=== PATIENT | female | born 1975 | race Caucasian/White ===

== ENCOUNTER 2022-01-28 02:18 | Emergency (ER) | payer BC, SELFPAY ==
[2022-01-28] VITALS (8 sets, daily range): BP systolic 110–143; BP diastolic 72–99; PULSE 70–86; RESP 13–18; TEMP 36.5; O2SAT 100
--- NOTE | ~2022-01-28 | XR_ITS ---
EXAMINATION: XR chest 2V DATE: 01/28/2022 03:17 INDICATION: Chest pain. TECHNIQUE: Frontal and lateral views of the chest were obtained. COMPARISON: Chest single view 03/30/2017 FINDINGS: There is mild scarring at the lung apices. No pleural effusion or pneumothorax. The heart s ize is normal. IMPRESSION: 1. Mild scarring at the lung apices. Reviewed, dictated and finalized at location A.
--- NOTE | 2022-01-28 02:19 | ECG_ITS ---
Measurements Intervals [place] Rate: 71 P: 45 MN: 141 QRS: 270 QRSD: 95 T: 50 QT: 388 QTc: 423 Interpretive Statements SINUS RHYTHM MARKED RIGHT AXIS DEVIATION [QRS AXIS > 100] LOW QRS VOLTAGE IN EXTREMITY LEADS [QRS DEFLECTION < 0.5 mV IN LIMB LEADS] INCOMPLETE RIGHT BUNDLE BRANCH BLOCK [90+ ms QRS DURATION, TERMINAL R IN V1/V2, 40+ ms S IN I/aVL/V4/V5/V6] POSSIBLE ANTERIOR MYOCARDIAL INFARCTION , OF INDETERMINATE AGE [30 ms Q WAVE IN V3/V4, OR R < 0.2 mV IN V4] NO PREVIOUS ECG AVAILABLE FOR COMPARISON Electronically Signed On 01-28-2022 16:18:28 CDT by Mark Anton M.D.
[2022-01-28 02:41] LABS: Basophils Absolute Auto 0.1 K/mm3 (0.0-0.1); Basophils Percent Auto 1.1 % (0.2-1.2); Eosinophils Absolute Auto 0.1 K/mm3 (0-0.3); Eosinophils Percent Auto 1.1 % (0-4.4); Hematocrit 42.8 % (37.0-47.0); Hemoglobin 13.4 g/dL (12.0-15.0); Immature Granulocyte Absolute 0.02 K/mm3 (0.00-0.031); Immature Granulocyte Percent A 0.2 % (0-0.5); Lymphocytes Absolute Auto 3.21 K/mm3 (0.9-3.2); Lymphocytes Percent Auto 34.9 % (18.3-44.2); Mean Corpuscular HGB Conc 31.3 g/dl (32-36); Mean Corpuscular Hemoglobin 29.3 pg (26-34); Mean Corpuscular Volume 93.7 fl (80-100); Monocytes Absolute Auto 0.8 K/mm3 (0.1-0.6); Monocytes Percent Auto 8.6 % (2.6-8.5); Neutrophils Percent Auto 54.1 % (45.5-73.1); Platelet Count Result 211 k/mm3 (150-375); Red Blood Count 4.57 M/mm3 (4.2-5.4); White Blood Count 9.2 K/mm3 (4.5-10.0)
[2022-01-28 02:51] LABS: INR 1.1; Partial Thromboplastin Time 30.1 SECONDS (22.3-36.8); Prothrombin Time 13.3 Seconds (11.1-14.7)
[2022-01-28 02:52] LABS: Alanine Aminotransferase 17 U/L (4-35); Albumin Level 4.4 g/dL (3.5-5.1); Alkaline Phosphatase 98 U/L (38-126); Anion Gap 6 mmol/L (8-16); Aspartate Amino Transferase 27 U/L (14-36); Bilirubin,Total 0.2 mg/dL (0.2-1.3); Blood Urea Nitrogen 14 mg/dL (7-17); Calcium 8.3 mg/dL (8.4-10.2); Carbon Dioxide 24 mmol/L (22-30); Chloride 105 mmol/L (98-107); Estimated Glomerular Filt Rate > 60; Glucose 96 mg/dL (65-110); Lipase 74 U/L (23-300); Potassium 3.6 mmol/L (3.4-5.0); Sodium 135 mmol/L (137-145)
[2022-01-28 03:03] LABS: Troponin I < 0.012 ng/mL (0.000-0.034)
[2022-01-28] MEDS: ASPIRIN 81 MG CHEWABLE TABLET 324 MG PO (03:16)
[2022-01-28 05:51] LABS: Troponin I < 0.012 ng/mL (0.000-0.034)
--- NOTE | 2022-01-28 06:32 | ED.CHESTPAIN ---
HPI - Chest Pain General Chief Complaint: Chest Pain Stated Complaint: chest pain Time Seen by Provider: 01/28/22 02:36 History of Present Illness HPI narrative: Patient is a 46-year-old female who presents ER with chest pain. Left-sided. Sharp. Associate with belching and bloating. She had a metallic taste in her mouth. Denies fevers chills or sweats. Occurred 2 hours after eating pulled pork. Has found no modifying factors. Related Data Home Medications Medication Instructions Recorded Confirmed levothyroxine [Synthroid] 175 mcg PO DAILY 01/28/22 Allergies Allergy/AdvReac Type Severity Reaction Status Date / Time No Known Allergies Allergy Verified 01/28/22 02:38 Review of Systems Review of Systems: All systems reviewed & are unremarkable except as noted in HPI and below Constitutional: Constitutional: Denies chills, Denies fever(s) and Denies weakness ENT: Denies nasal congestion and Denies sore throat Cardiovascular: Cardiovascular: Reports chest pain, Denies rapid heart rate and Denies radiating jaw, neck or arm pain Respiratory: Respiratory: Denies cough, Denies dyspnea and Denies wheezing Gastrointestinal: Gastrointestinal: Denies abdominal pain, Reports bloating and Reports heartburn Genitourinary: Genitourinary: Denies nocturia, Denies dysuria and Denies flank pain PMFSH Past Medical History Medical History (Updated 01/28/22 @ 06:40 by Claudio Pimentel MD) Hypothyroidism Surgical History Surgical History (Updated 01/28/22 @ 06:35 by Claudio Pimentel MD) No pertinent past surgical history Social History Social History (Updated 01/28/22 @ 06:35 by Claudio Pimentel MD) Smoking status: Never smoker Exam Narrative: GENERAL: Well-appearing, well-nourished, and in no acute distress. HEAD: Normocephalic, atraumatic. ENT: Mucous membranes moist. CHEST: Clear to auscultation. No respiratory distress. HEART: Regular rate and rhythm. Normal peripheral pulses. ABDOMEN: Soft, nontender, nondistended. EXTREMITIES: Normal range of motion. No edema. SKIN: Warm, dry, no rash. NEURO: Alert and oriented x3. PSYCH: Normal mood and affect. Course Course Emergency Course: Patient informed of results. Symptoms felt be related to acid reflux. Discharge home. Vital Signs Vital signs: Vital Signs Temperature 97.7 F 01/28/22 02:24 Pulse Rate 70 01/28/22 02:24 Respiratory Rate 14 01/28/22 02:24 Blood Pressure 139/95 H 01/28/22 02:24 Pulse Oximetry 100 01/28/22 02:24 Temperature 97.7 F 01/28/22 02:24 Pulse Rate 77 01/28/22 04:15 Respiratory Rate 16 01/28/22 04:15 Blood Pressure 129/72 01/28/22 04:15 Pulse Oximetry 100 01/28/22 04:15 MDM - Chest Pain Lab Data Result diagrams: 01/28/22 02:33 01/28/22 02:33 Labs: Lab Results 01/28/22 01/28/22 01/28/22 Range/Units 02:33 02:33 02:33 WBC 9.2 (4.5-10.0) K/mm3 RBC 4.57 (4.2-5.4) M/mm3 Hgb 13.4 (12.0-15.0) g/dL Hct 42.8 (37.0-47.0) % MCV 93.7 (80-100) fl MCH 29.3 (26-34) pg MCHC 31.3 L (32-36) g/dl RDW 13.0 (11.5-14.5) % Plt Count 211 (150-375) k/mm3 MPV 10.0 (7.4-10.4) fl Immature Gran % (Auto) 0.2 (0-0.5) % Neut % (Auto) 54.1 (45.5-73.1) % Lymph % (Auto) 34.9 (18.3-44.2) % [place] % (Auto) 8.6 H (2.6-8.5) % Eos % (Auto) 1.1 (0-4.4) % Baso % (Auto) 1.1 (0.2-1.2) % Lymph # (Auto) 3.21 H (0.9-3.2) K/mm3 [place] # (Auto) 0.8 H (0.1-0.6) K/mm3 Eos # (Auto) 0.1 (0-0.3) K/mm3 Baso # (Auto) 0.1 (0.0-0.1) K/mm3 Abs Immat Gran (auto) 0.02 (0.00-0.031) K/mm3 Absolute Neuts (auto) 5.0 (1.3-6.7) K/mm3 Absolute Nucleated RBC 0.0 (0.0-0.012) K/mm3 Nucleated RBC % 0.0 (0.0-0.2) % PT 13.3 (11.1-14.7) Seconds INR 1.1 APTT 30.1 (22.3-36.8) SECONDS Sodium 135 L (137-145) mmol/L Potassium 3.6 (3.4-5.0) mmol/L Chloride 105 (98-107) m
== END 2022-01-28 06:50 | disposition home or self-care (01) ==
PROVIDERS: Emergency Provider Emergency Medicine; PCP Physician Assistant
DX: R07.89 Other chest pain (principal); K21.9 Gastro-esophageal reflux disease without esophagitis; E03.9 Hypothyroidism, unspecified
CPT/HCPCS: 36415; 71046; 80053; 83690; 84484; 85025; 85610; 85730; 93005; 99284; A9270